=== PATIENT | female | born 1930 | race Caucasian/White ===

== ENCOUNTER 2017-02-18 18:24 | Inpatient (IN) | payer MEDICARE, OTHER ==
[2017-02-18] MEDS ORDERED: Sodium Chloride 0.9% 1,000 ML IV SCH (19:15)
[2017-02-18] MEDS ORDERED: Sodium Chloride 0.9% 10 ML Syringe FLUSH PRN (21:10)
[2017-02-18] MEDS ORDERED: Iopamidol 612 MG/ML 100 ML Bottle IV PRN (21:10)
[2017-02-18] MEDS ORDERED: Sodium Chloride 0.9% 80 ML IV ONE (21:10)
[2017-02-18] MEDS ORDERED: HYDROmorphone 0.5 MG/0.5 ML Syringe IVPUSH ONE (21:18)
--- NOTE | 2017-02-18 21:18 | EDM.PDOC ---
ED HPI GENERAL MEDICAL PROBLEM - General Chief Complaint: Gastrointestinal Problem Stated Complaint: ILLNESS Time Seen by Provider: 02/18/17 18:50 Source of Information: Reports: Patient History Limitations: Reports: No Limitations - History of Present Illness INITIAL COMMENTS - FREE TEXT/NARRATIVE: pt arrived with a history of mucousy and bloody diarrhea. She had a number of stools prior to arrval. She has sig pain in the lower abdoman. i Onset: Other (last nite. Pt has lost alot of weight recntly. ) Duration: Hour(s): Location: Reports: Abdomen Quality: Reports: Pressure Severity: Moderate Associated Symptoms: Reports: Loss of Appetite, Other ( weight loss) Abdominal Pain Score (Numeric/FACES): 10 - Related Data Allergies Allergy/AdvReac Type Severity Reaction Status Date / Time Penicillins Allergy Rash Verified 02/19/17 00:49 Home Meds: Home Meds Amiodarone [Cordarone] 200 mg PO DAILY 11/24/13 [History] Aspirin [[place] Aspirin] 81 mg PO DAILY 11/24/13 [History] Furosemide [Lasix] 20 mg PO DAILY 11/24/13 [History] Multivitamin [Multivitamins] 1 tab PO DAILY 11/24/13 [History] Acetaminophen/Diphenhydramine [Tylenol Pm Ex-Strength Caplet] 1 tab PO BEDTIME 08/15/14 [History] Albuterol [Ventolin HFA] 2 puff IH Q4H PRN 09/24/14 [History] Lisinopril 20 mg PO DAILY 10/09/14 [History] Warfarin [Coumadin] 2 mg PO DAILY #30 tablet 10/14/14 [Rx] Metoprolol Tartrate [Lopressor] 50 mg PO BID 01/11/15 [History] Acetaminophen [Pain Reliever] 1 tab PO Q6H PRN 02/18/17 [History] Calcium Carbonate/Vitamin D3 [Calcium 600 + Vit D 200] 1 tab PO DAILY 02/18/17 [ History] Tolterodine Tartrate [Tolterodine Tartrate ER] 1 cap PO DAILY 02/18/17 [History] hydrOXYzine HCl [hydrOXYzine] 50 mg PO Q6H PRN 02/18/17 [History] Past Medical History HEENT History: Reports: Impaired Vision Cardiovascular History: Reports: Afib, Hypertension Respiratory History: Reports: SOB 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 hurts mid right back Psychiatric History: Reports: Anxiety Hematologic History: Reports: Anticoagulation Therapy - Infectious Disease History Infectious Disease History: Reports: Chicken Pox - Past Surgical History GI Surgical History: Reports: Cholecystectomy, Colonoscopy Female Surgical History: Reports: Hysterectomy Musculoskeletal Surgical History: Reports: Shoulder Surgery, Other (See Below) Other Musculoskeletal Surgeries/Procedures:: fracture repair of arm Social & Family History - Tobacco Use Smoking Status *Q: Never Smoker Years of Tobacco use: 30 Used Tobacco, but Quit: Yes Month Tobacco Last Used: 1982 Second Hand Smoke Exposure: No - Caffeine Use Caffeine Use: Reports: Coffee, Soda - Alcohol Use Days Per Week of Alcohol Use: 7 Number of Drinks Per Day: 1 Total Drinks Per Week: 7 - Recreational Drug Use Recreational Drug Use: No ED ROS GENERAL - Review of Systems Review Of Systems: See Below Constitutional: Reports: No Symptoms HEENT: Reports: No Symptoms Respiratory: Reports: No Symptoms Cardiovascular: Reports: No Symptoms Endocrine: Reports: No Symptoms GI/Abdominal: Reports: Abdominal Pain, Other (pt has lower abdomanal pain) : Reports: No Symptoms Musculoskeletal: Reports: No Symptoms Skin: Reports: No Symptoms Neurological: Reports: No Symptoms Psychiatric: Reports: Anxiety ED EXAM, GI/ABD - Physical Exam Exam: See Below Text/Narrative:: pt arrived with pain in the lower abdoman. Sh has had a number of stools that are bloody and have alot of mmucous. She has not been on any recent antibiotic. Exam Limited By: No Limitations General Appearance: Alert, Anxious, Moderate Distress Ears: Normal TMs Nose: Normal Inspection Throat/Mouth: Normal Inspection Head: Atraumatic Neck: Normal Inspection Respiratory/Chest: No Respiratory Distress Cardiovascular: Regular Rate, Rhythm GI/Abdominal Exam: Distended, Tender, Other (pt is tender in the lower abdoman. ) (Female) Exam: Deferred Rectal (Female) Exam: Bloody Stool, Other (pt has a possible rectal mass present. ) Extremities: Normal Inspection Neurological: Alert, Oriented, Normal Cognition Psychiatric: Normal Affect Course - Vital Signs Last Recorded V/S: Last Vital Signs Temp 36.4 C 02/20/17 13:11 Pulse 31 L 02/20/17 13:15 Resp 14 02/20/17 13:15 BP 130/59 L 02/20/17 13:15 Pulse Ox 83 L 02/20/17 13:15 - Orders/Labs/Meds Labs: Laboratory Tests 02/18/17 02/18/17 02/18/17 Range/Units 19:32 19:32 19:32 WBC 13.5 H (4.5-11.0) K/uL RBC 4.32 (3.30-5.50) M/uL Hgb 12.8 (12.0-15.0) g/dL Hct 39.2 (36.0-48.0) % MCV 91 (80-98) fL MCH 30 (27-31) pg MCHC 33 (32-36) % Plt Count 342 (150-400) K/uL Neut % (Auto) 85 H (36-66) % Lymph % (Auto) 8 L (24-44) % [place] % (Auto) 7 H (2-6) % Eos % (Auto) 0 L (2-4) % Baso % (Auto) 0 (0-1) % PT 38.7 H (9.5-12.0) sec INR 3.44 H (0.80-1.20) Sodium 142 (140-148) mmol/L Potassium 3.9 (3.6-5.2) mmol/L Chloride 104 (100-108) mmol/L Carbon Dioxide 28 (21-32) mmol/L Anion Gap 9.8 (5.0-14.0) mmol/L BUN 22 H (7-18) mg/dL Creatinine 1.1 H (0.6-1.0) mg/dL Est Cr Clr Drug Dosing 34.17 mL/min Estimated GFR (MDRD) 47 L (>60) Glucose 119 H (74-106) mg/dL Calcium 9.1 (8.5-10.1) mg/dL Total Bilirubin 0.6 D (0.2-1.0) mg/dL AST 29 (15-37) U/L ALT 25 (12-78) U/L Alkaline Phosphatase 97 (46-116) U/L C-Reactive Protein (0.0-0.3) mg/dL Total Protein 7.3 (6.4-8.2) g/dL Albumin 3.6 (3.4-5.0) g/dL Globulin 3.7 H (2.3-3.5) g/dL Albumin/Globulin Ratio 1.0 L (1.2-2.2) TSH, Ultra Sensitive (0.358-3.740) uIU/mL 02/18/17 02/18/17 Range/Units 20:05 21:19 WBC (4.5-11.0) K/uL RBC (3.30-5.50) M/uL Hgb (12.0-15.0) g/dL Hct (36.0-48.0) % MCV (80-98) fL MCH (27-31) pg MCHC (32-36) % Plt Count (150-400) K/uL Neut % (Auto) (36-66) % Lymph % (Auto) (24-44) % [place] % (Auto) (2-6) % Eos % (Auto) (2-4) % Baso % (Auto) (0-1) % PT (9.5-12.0) sec INR (0.80-1.20) Sodium (140-148) mmol/L Potassium (3.6-5.2) mmol/L Chloride (100-108) mmol/L Carbon Dioxide (21-32) mmol/L Anion Gap (5.0-14.0) mmol/L BUN (7-18) mg/dL Creatinine (0.6-1.0) mg/dL Est Cr Clr Drug Dosing mL/min Estimated GFR (MDRD) (>60) Glucose (74-106) mg/dL Calcium (8.5-10.1) mg/dL Total Bilirubin (0.2-1.0) mg/dL AST (15-37) U/L ALT (12-78) U/L Alkaline Phosphatase (46-116) U/L C-Reactive Protein 0.55 H (0.0-0.3) mg/dL Total Protein (6.4-8.2) g/dL Albumin (3.4-5.0) g/dL Globulin (2.3-3.5) g/dL Albumin/Globulin Ratio (1.2-2.2) TSH, Ultra Sensitive 0.292 L (0.358-3.740) uIU/mL Meds: Medications Discontinued Medications Generic Name Dose Route Start Last Admin Trade Name Conradoq PRN Reason Stop Dose Admin Acetaminophen 650 mg 02/19/17 00:34 02/19/17 13:34 Tylenol PO 650 mg Q4H PRN Administration Pain (Mild 1-3)/fever Albuterol 2.5 mg 02/19/17 00:34 Proventil Neb Soln NEB Q4H PRN Shortness Of Breath/wheezing Albuterol/Ipratropium 3 ml 02/19/17 00:34 Duoneb 3.0-0.5 Mg/3 Ml NEB QID PRN Shortness Of Breath/wheezing Amiodarone HCl 200 mg 02/19/17 09:00 02/20/17 10:02 Cordarone PO 200 mg DAILY CONTRERAS Administration Amlodipine Besylate 5 mg 02/20/17 09:15 02/20/17 10:04 Norvasc PO 5 mg DAILY CONTRERAS Administration Atropine Sulfate 0.5 mg 02/20/17 12:30 02/20/17 12:39 Atropine 0.1 Mg/Ml IVPUSH 02/20/17 12:31 0.5 mg ONETIME ONE Administration Bisacodyl 10 mg 02/19/17 00:34 02/19/17 01:28 Dulcolax PO 02/19/17 00:35 10 mg ONETIME ONE Administration Bisacodyl 10 mg 02/19/17 18:00 02/19/17 17:36 Dulcolax PO 02/19/17 18:01 10 mg ONETIME ONE Administration Bisacodyl 10 mg 02/19/17 21:00 02/19/17 22:02 Dulcolax PO 02/19/17 21:01 10 mg ONETIME ONE Administration Diphenhydramine HCl 25 mg 02/19/17 00:34 Benadryl PO BEDTIME PRN Insomnia Epinephrine HCl 0.5 mg 02/20/17 13:10 02/20/17 13:10 Epinephrine 1:10,000 IV 02/20/17 13:11 0.5 mg ONETIME ONE Administration Epinephrine HCl 1 mg 02/20/17 13:00 02/20/17 13:00 Epinephrine 1:10,000 IV 02/20/17 13:01 1 mg ONETIME ONE Administration Fentanyl Confirm 02/20/17 09:57 Sublimaze Administered 02/20/17 09:58 Dose 100 mcg .ROUTE .STK-MED ONE Furosemide 20 mg 02/19/17 09:00 02/19/17 09:43 Lasix PO 20 mg DAILY CONTRERAS Administration Glycopyrrolate 0.2 mg 02/20/17 12:15 02/20/17 12:18 Glycopyrrolate IVPUSH 02/20/17 12:16 0.2 mg ONETIME ONE Administration Hydromorphone HCl 0.5 mg 02/18/17 21:18 02/18/17 22:02 Dilaudid IVPUSH 02/18/17 21:19 0.5 mg ONETIME ONE Administration Hydroxyzine HCl 50 mg 02/19/17 00:34 Atarax PO Q6H PRN Anxiety Sodium Chloride 1,000 mls @ 500 mls/hr 02/18/17 19:15 02/18/17 19:41 Normal Saline IV 500 mls/hr ASDIRECTED CONTRERAS Administration Sodium Chloride 80 mls @ 3 mls/sec 02/18/17 21:10 02/18/17 21:32 Normal Saline IV 02/18/17 21:11 3 mls/sec ONETIME ONE Administration Pantoprazole Sodium 80 mg/ 100 mls @ 200 mls/hr 02/19/17 00:34 02/19/17 02:05 Sodium Chloride IV 02/19/17 01:03 200 mls/hr .BOLUS ONE Administration Phytonadione 10 mg/ Sodium 51 mls @ 100 mls/hr 02/19/17 00:34 02/19/17 01:30 Chloride IV 02/19/17 01:04 100 mls/hr NOW ONE Administration Sodium Chloride 1,000 mls @ 125 mls/hr 02/19/17 00:34 02/19/17 09:05 Normal Saline IV 125 mls/hr ASDIRECTED CONTRERAS Administration Sodium Chloride 1,000 mls @ 75 mls/hr 02/19/17 13:15 02/20/17 05:00 Normal Saline IV 75 mls/hr ASDIRECTED CONTRERAS Administration Phytonadione 5 mg/ Sodium 50.5 mls @ 100 mls/hr 02/19/17 13:30 02/19/17 14:13 Chloride IV 02/19/17 14:00 100 mls/hr NOW ONE Administration Iopamidol 100 ml 02/18/17 21:10 02/18/17 21:32 Isovue-300 (61%) IV 100 ml . DIRECTED PRN Administration RADIOLOGY EXAM Lidocaine Confirm 02/20/17 09:58 02/20/17 11:25 Lta 360 Kit Top Soln Administered 02/20/17 09:59 4 ml Dose Administration 4 ml .ROUTE .STK-MED ONE Lidocaine HCl Confirm 02/20/17 11:03 02/20/17 11:25 Xylocaine 2% Viscous Administered 02/20/17 11:04 15 ml Dose Administration 15 ml .ROUTE .STK-MED ONE Lidocaine HCl Confirm 02/20/17 11:04 Xylocaine 4% Top Soln Administered 02/20/17 11:05 Dose 50 ml .ROUTE .STK-MED ONE Lisinopril 20 mg 02/19/17 09:00 02/20/17 10:03 Prinivil PO 20 mg DAILY CONTRERAS Administration Lorazepam 1 mg 02/19/17 00:34 02/20/17 12:55 Ativan IV 1 mg Q6H PRN Administration Nausea/Vomiting Lorazepam 1 mg 02/20/17 13:09 02/20/17 13:09 Ativan IV 02/20/17 13:10 1 mg ONETIME ONE Administration Metoprolol Tartrate 100 mg 02/19/17 09:00 02/20/17 10:02 Lopressor PO 100 mg BID CONTRERAS Administration Midazolam HCl Confirm 02/20/17 09:57 Versed 1 Mg/Ml Administered 02/20/17 09:58 Dose 2 mg .ROUTE .STK-MED ONE Midazolam HCl Confirm 02/20/17 12:25 Versed 1 Mg/Ml Administered 02/20/17 12:26 Dose 2 mg .ROUTE .STK-MED ONE Morphine Sulfate 2 mg 02/19/17 00:34 Morphine IVPUSH Q2H PRN Pain (severe 7-10) Ondansetron HCl 4 mg 02/18/17 22:45 02/18/17 22:49 Zofran IVPUSH 02/18/17 22:46 4 mg ONETIME ONE Administration Ondansetron HCl 4 mg 02/19/17 00:34 Zofran Odt PO Q6H PRN Nausea able to take PO Ondansetron HCl 4 mg 02/19/17 00:34 Zofran IV Q4H PRN Nausea/Vomiting Oxycodone HCl 5 mg 02/19/17 00:34 02/20/17 05:07 Oxycodone PO 5 mg Q4H PRN Administration Pain (moderate 4-6) Pantoprazole Sodium 40 mg 02/19/17 00:34 02/19/17 02:09 Protonix Iv IV Not Given Q12H CONTRERAS Pantoprazole Sodium 40 mg 02/19/17 14:00 02/20/17 01:51 Protonix Iv IV 40 mg Q12H CONTRERAS Administration Polyethylene Glycol 238 gm 02/19/17 00:34 02/19/17 01:30 Miralax PO 02/19/17 00:35 238 gm ONETIME ONE Administration Polyethylene Glycol 238 gm 02/19/17 18:00 02/19/17 17:37 Miralax PO 02/19/17 18:01 238 gm ONETIME ONE Administration Propofol Confirm 02/20/17 09:57 Diprivan 20 Ml Administered 02/20/17 09:58 Dose 200 mg .ROUTE .STK-MED ONE Sodium Biphosphate/Sodium Phosphate 133 ml 02/19/17 08:45 02/19/17 08:51 Fleet Enema RECTAL 02/19/17 08:46 133 ml ONETIME ONE Administration Sodium Biphosphate/Sodium Phosphate 133 ml 02/19/17 09:19 02/19/17 09:44 Fleet Enema RECTAL 02/19/17 09:20 133 ml ONETIME ONE Administration Sodium Chloride 10 ml 02/18/17 21:10 02/18/17 21:32 Saline Flush FLUSH 10 ml ONETIME PRN Administration PER RADIOLOGY PROTOCOL Tolterodine Tartrate 1 mg 02/19/17 09:00 02/19/17 21:55 Detrol PO 1 mg BID CONTRERAS Administration Zolpidem Tartrate 5 mg 02/19/17 00:34 Ambien PO BEDTIME PRN Sleep Departure - Departure Time of Disposition: 13:15 Disposition: Admitted As Inpatient 66 Condition: Fair Clinical Impression: Mass of right chest wall, Rectal mass, Bloody diarrhea - Discharge Information
[2017-02-18] MEDS ORDERED: Ondansetron 4 MG/2 ML SDV IVPUSH ONE (22:45)
[2017-02-19] MEDS ORDERED: Bisacodyl 5 MG Tab PO ONE ×3 (00:34→21:00)
[2017-02-19] MEDS ORDERED: Ondansetron 4 MG/2 ML SDV IV PRN (00:34)
[2017-02-19] MEDS ORDERED: Pantoprazole 40 MG Vial IV SCH (00:34)
[2017-02-19] MEDS ORDERED: Albuterol 0.083% 2.5 MG/3 ML Neb Soln NEB PRN (00:34)
[2017-02-19] MEDS ORDERED: Ondansetron 4 MG Tab.DIS PO PRN (00:34)
[2017-02-19] MEDS ORDERED: diphenhydrAMINE 25 MG Cap PO PRN (00:34)
[2017-02-19] MEDS ORDERED: hydrOXYzine HCl 25 MG Tab PO PRN (00:34)
[2017-02-19] MEDS ORDERED: Phytonadione 10 MG in Sodium Chloride 0.9% 50 ML IV ONE (00:34)
[2017-02-19] MEDS ORDERED: Polyethylene Glycol 3350 Powder 238 GM Bot PO ONE ×2 (00:34→18:00)
[2017-02-19] MEDS ORDERED: Zolpidem 5 MG Tab PO PRN (00:34)
[2017-02-19] MEDS ORDERED: Albuterol/Ipratropium 3.0-0.5 MG/3 ML Neb Soln NEB PRN (00:34)
[2017-02-19] MEDS ORDERED: LORazepam 2 MG/ML SDV IV PRN (00:34)
[2017-02-19] MEDS ORDERED: Morphine 2 MG/ML Syringe IVPUSH PRN (00:34)
[2017-02-19] MEDS ORDERED: Pantoprazole 80 MG in Sodium Chloride 0.9% 100 ML IV ONE (00:34)
--- NOTE | 2017-02-19 00:34 | PCM.HP ---
H&P History of Present Illness - General Date of Service: 02/18/17 Admit Problem/Dx: Admission Diagnosis/Problem Admission Diagnosis/Problem Gastrointestinal hemorrhage Source of Information: Patient, Other (Friend Neighbor Kate Carreon) History Limitations: Reports: No Limitations - History of Present Illness Initial Comments - Free Text/Narative: bloody diarrhea and emesis; this is a 86 year old female presented ER with Friend/neighbor Kate Carreon. Ms. Major reports for the past two days, vomiting blood two times on Sunday and Sunday. Reports multi bloody stools for two days, this has caused acute abdominal pain. She has concerns of weakness and dizziness with standing and uncontrolled abdominal pain. Reports wt loss, decreased appetite, 2 day history of bloody emesis and stools. While in Emergency Room, labs; WBC 13.5, HGB 12.8, HCT 39.2, PLATLETS 324, NA 142, K+3.9, CL 104, ANION GAP 9.8, BUN 22, CR 1.1, GLU 119, C02 28. INR 3.44, PT 38.7 CRP 0.55, TOT PRO 7.3, GLOBULIN 3.6, TSH 0.292, FECAL OCCULT STOOL POSITIVE. CT chest shows a right 5.3 cm spiculated lung mass. bilateral lung nodules. she was given IV fluids, anti-emetic, Dilaudid; she was comfortable. Reviewed the CT reports and labs results with Ms. Major and her friend Kate. would like these findings further investigated. She is unsure of what kind of treatment, she would like to have. but would like to find out the extent of disease and prognosis for treatment. Consulted with Dr. Baxter, he will do a EGD, Colonscopy and Bronchoscopy tomorrow. Will admit to Hospitalist Service. Onset of Symptoms: Reports: Gradual Duration of Symptoms: Reports: Day(s): (bloody stool and emesis x 2 days) Location: Reports: Generalized Quality: Reports: Other (cramping abdominal pain) Severity: Severe Improves with: Reports: None Worsens with: Reports: None Associated Symptoms: Reports: Fever/Chills, Loss of Appetite, Malaise, Nausea/ Vomiting, Weakness Abdominal Pain Score (Numeric/FACES): 6 - Related Data Allergies/Adverse Reactions: Allergies Allergy/AdvReac Type Severity Reaction Status Date / Time Penicillins Allergy Rash Verified 02/19/17 00:49 Home Medications: Home Meds Amiodarone [Cordarone] 200 mg PO DAILY 11/24/13 [History] Aspirin [[place] Aspirin] 81 mg PO DAILY 11/24/13 [History] Furosemide [Lasix] 20 mg PO DAILY 11/24/13 [History] Multivitamin [Multivitamins] 1 tab PO DAILY 11/24/13 [History] Acetaminophen/Diphenhydramine [Tylenol Pm Ex-Strength Caplet] 2 tab PO BEDTIME 08/15/14 [History] Albuterol [Ventolin HFA] 1 - 2 puff IH Q4H PRN 09/24/14 [History] Lisinopril 20 mg PO DAILY 10/09/14 [History] Warfarin [Coumadin] 2 mg PO DAILY #30 tablet 10/14/14 [Rx] Metoprolol Tartrate [Lopressor] 100 mg PO BID 01/11/15 [History] Acetaminophen [Pain Reliever] 1 tab PO Q6H PRN 02/18/17 [History] Calcium Carbonate/Vitamin D3 [Calcium 600 + Vit D 200] 1 tab PO DAILY 02/18/17 [ History] Tolterodine Tartrate [Tolterodine Tartrate ER] 1 cap PO DAILY 02/18/17 [History] hydrOXYzine HCl [hydrOXYzine] 50 mg PO Q6H PRN 02/18/17 [History] Past Medical History HEENT History: Reports: Impaired Vision Cardiovascular History: Reports: Afib, Hypertension Respiratory History: Reports: 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 hurts mid right back Psychiatric History: Reports: Anxiety Hematologic History: Reports: Anticoagulation Therapy - Infectious Disease History Infectious Disease History: Reports: Chicken Pox - Past Surgical History GI Surgical History: Reports: Cholecystectomy, Colonoscopy Female Surgical History: Reports: Hysterectomy Musculoskeletal Surgical History: Reports: Shoulder Surgery, Other (See Below) Other Musculoskeletal Surgeries/Procedures:: fracture repair of arm Social & Family History - Tobacco Use Smoking Status *Q: Never Smoker Years of Tobacco use: 30 Used Tobacco, but Quit: Yes Month Tobacco Last Used: 1982 Second Hand Smoke Exposure: No - Caffeine Use Caffeine Use: Reports: Coffee, Soda - Alcohol Use Days Per Week of Alcohol Use: 7 Number of Drinks Per Day: 1 Total Drinks Per Week: 7 - Recreational Drug Use Recreational Drug Use: No - Living Situation & Occupation Living situation: Reports: , Alone Occupation: Retired (, had one son, who , lives in on the [place], has a Sister in the [facility] with six children. Her Niece Rachel is her Health Director.) H&P Review of Systems - Review of Systems: Review Of Systems: See Below General: Reports: Chills, Malaise, Fatigue, Decreased Appetite, Weight Loss HEENT: Reports: No Symptoms Pulmonary: Reports: Shortness of Breath (with activity), Other (smoked 2 packs of cigarettes for 30+ years, quit in 1984.) Cardiovascular: Reports: Lightheadedness, Other (coumadin therapy for A-fib.) Gastrointestinal: Reports: Abdominal Pain, Black Stool, Bloody Stool, Diarrhea, Decreased Appetite, Hematemesis, Hematochezia, Nausea, Vomiting Genitourinary: Reports: No Symptoms Musculoskeletal: Reports: No Symptoms Skin: Reports: Bruising Psychiatric: Reports: No Symptoms Hematologic/Lymphatic: Reports: Easy Bleeding, Easy Bruising Immunologic: Reports: No Symptoms Exam - Exam Exam: See Below - Vital Signs Vital Signs: Last Vital Signs Temp 36.8 C 02/19/17 00:17 Pulse 69 02/19/17 00:17 Resp 17 02/19/17 00:17 BP 177/61 H 02/19/17 00:17 Pulse Ox 88 L 02/19/17 00:17 Weight: 58.967 kg - Exam Quality Assessment: Supplemental Oxygen General: Alert, Oriented, Cooperative, Mild Distress HEENT: PERRLA, Conjunctiva Clear, EACs Clear, EOMI, Hearing Intact, Nares Patent , Normal Nasal Septum, Other (tongue dry) Neck: Supple, Trachea Midline Lungs: Decreased Breath Sounds Cardiovascular: Regular Rate, Regular Rhythm GI/Abdominal Exam: Soft, No Distention, Tender (generalized abdominal pain) (Female) Exam: Deferred Rectal (Female) Exam: Heme + Stool Back Exam: Normal Inspection, Full Range of Motion Extremities: Normal Inspection, Normal Range of Motion, No Pedal Edema, Other ( toe nails long and fungal. needs clipped) Skin: Warm, Dry, Intact, Other (few scattered bruises on hands and arms.) Neurological: Reflexes Equal Bilateral, Strength Equal Bilateral, Normal Speech , Normal Tone, Sensation Intact Neuro Extensive - Mental Status: Alert, Oriented x3, Normal Mood/Affect, Normal Cognition Neuro Extensive - Motor, Sensory, Reflexes: CN II-XII Intact Psychiatric: Alert, Normal Affect, Normal Mood - Patient Data Result Diagrams: 02/18/17 19:32 02/18/17 19:32 *Q Meaningful Use (ADM) - VTE *Q VTE Criteria *Q: - Stroke *Q Stroke Criteria *Q: - AMI *Q AMI Criteria *Q: - Problem List (1) Gastrointestinal hemorrhage SNOMED Code(s): 12252897 ICD Code: K92.2 - GASTROINTESTINAL HEMORRHAGE, UNSPECIFIED Status: Acute Priority: High Current Visit: Yes Qualifiers: GI bleed type/associated pathology: gastrointestinal hemorrhage with hematemesis Qualified Code(s): K92.0 - Hematemesis (2) Lung mass SNOMED Code(s): 835991667 ICD Code: R91.8 - OTHER NONSPECIFIC ABNORMAL FINDING OF LUNG FIELD Status: Acute Priority: High Current Visit: Yes (3) Atrial fibrillation SNOMED Code(s): 46142439 ICD Code: I48.91 - UNSPECIFIED ATRIAL FIBRILLATION Status: Chronic Priority: Medium Current Visit: No Qualifiers: Atrial fibrillation type: chronic Qualified Code(s): I48.2 - Chronic atrial fibrillation Problem List Initiated/Reviewed/Updated: Yes Orders Last 24hrs: Active Orders 24 hr Category Date Time Status Resuscitation Status Routine Resus Stat 02/18/17 23:47 Ordered Medication Orders Sodium Chloride (Normal Saline) 1,000 mls @ 500 mls/hr IV ASDIRECTED [facility] Last Admin: 02/18/17 19:41 Dose: 500 mls/hr Sodium Chloride (Saline Flush) 10 ml FLUSH ONETIME PRN PRN Reason: PER RADIOLOGY PROTOCOL Last Admin: 02/18/17 21:32 Dose: 10 ml Assessment/Plan Comment:: ASSESSMENT / PLAN bloody diarrhea and emesis; this is a 86 year old female presented ER with Friend/neighbor Kate Carreon. Ms. Major reports for the past two days, vomiting blood two times on Sunday and Sunday. Reports multi bloody stools for two days, this has caused acute abdominal pain. She has concerns of weakness and dizziness with standing and uncontrolled abdominal pain. Reports wt loss, decreased appetite, 2 day history of bloody emesis and stools. While in Emergency Room, labs; WBC 13.5, HGB 12.8, HCT 39.2, PLATLETS 324, NA 142, K+3.9, CL 104, ANION GAP 9.8, BUN 22, CR 1.1, GLU 119, C02 28. INR 3.44, PT 38.7 CRP 0.55, TOT PRO 7.3, GLOBULIN 3.6, TSH 0.292, FECAL OCCULT STOOL POSITIVE. CT chest shows a right 5.3 cm spiculated lung mass. bilateral lung nodules. she was given IV fluids, anti-emetic, Dilaudid; she was comfortable. Reviewed the CT reports and labs results with Ms. Major and her friend Kate. would like these findings further investigated. She is unsure of what kind of treatment, she would like to have. but would like to find out the extent of disease and prognosis for treatment. Consulted with Dr. Baxter, he will do a EGD, Colonscopy and Bronchoscopy tomorrow. Will admit to Hospitalist Service, consult to Surgery Gastrointestinal bleed -Admit to [address] [place] [address] for further monitoring -IV Fluids for rehydration NS at 125 mL per hour -type and cross for 2 units of PRBC -IV Protonix 80mg iv now, tomorrow IV Protonix 40mg bid -order medication for pain control and anti-emetics -consult to Surgery, will have EGD, Colonscopy, Bronchoscopy on 02-19-2017 -Colonscopy prep per protocal -Advise to notify nurses of any chest pain or other symptoms -And a.m. labs: CBC, BMP A Fib with anticoagulation therapy -hold Coumadin for surgery procedure -IV Vitamin K 10 mg now New Lung Mass -CT chest right 5.3 cm lung mass with bilateral nodules. -bronchoscopy to evaluate mass Maintenance issues -Orders home meds: all order except Coumadin -Nutrition: NPO -Bhatia catheter not indicated at this time -DVT: SCD -PPI; IV Protonix 40mg bid -consult OT for discharge planning -consult to Spiritual , new diagnosis CODE STATUS: DNR/DNI Admission status: Admit to [address] [place] [address] Admission justification. This patient will be admitted for inpatient services and is medically appropriate meeting medical necessity for inpatient admission as outlined in my documentation. I reasonably expect the patient will require inpatient services that span. Time over 2 midnights. I reasonably expect this patient to be discharged or transferred within 96 hours after admission to the critical access hospital. Disposition; home Primary care provider: Dr. Turcios Hospitalist: Dr. Concepcion Surgery Consult: Dr. oFy Call friend if has any changes; Kate Solorzano :[phone] cell [phone]
[2017-02-19] MEDS: Sodium Chloride 0.9% 1,000 ML IV SCH ×3 (01:16→17:34)
[2017-02-19] MEDS: Acetaminophen 325 MG Tab PO PRN ×2 (01:29→13:34)
[2017-02-19] MEDS: oxyCODONE 5 MG Tab PO PRN ×2 (01:29→13:33)
[2017-02-19] MEDS ORDERED: Sodium Phosphate,Monobasic/Sodium Phosphate,Dibasic Enema 133 ML Bottle RECTAL ONE ×2 (08:45→09:19)
[2017-02-19] MEDS ORDERED: Trospium 20 MG Tab PO SCH (09:00)
[2017-02-19] MEDS ORDERED: Furosemide 20 MG Tab PO SCH (09:00)
[2017-02-19] MEDS: Metoprolol Tartrate 50 MG Tab PO SCH ×2 (09:43→22:30)
[2017-02-19] MEDS: Tolterodine 2 MG Tab PO SCH ×2 (09:43→21:55)
[2017-02-19] MEDS: Amiodarone 200 MG Tab PO SCH (09:43)
[2017-02-19] MEDS: Lisinopril 20 MG Tab PO SCH (09:44)
--- NOTE | 2017-02-19 10:22 | CR ---
Abdomen Series w Chest 1V HISTORY: Pain COMPARISON: Chest x-ray 12/14/2015. Abdominal films 2015. FINDINGS: Stable mild cardiomegaly. Hyperinflation. No dense focal infiltrates. No effusions. Stable prominence of the right hilar region compatible with pulmonary artery. Prominent curvature of the lumbar spine with degenerative change. No evidence for obstruction or free air. Moderate stool throughout the entire colon likely representing constipation.
--- NOTE | 2017-02-19 13:15 | PCM.PN ---
- General Info Date of Service: 02/19/17 Subjective Update: Ms. Major is an 86-year-old woman who was admitted through the emergency department last night with lower abdominal pain, hematochezia, and hematemesis over a period of 2 days. Since admission she has had no further hematemesis or hematochezia. Hemoglobin has dropped with hydration but since has remained stable with no evidence of active bleeding. CT scan obtained on admission did show incidental finding of a lung mass. Plan had been to proceed with bronchoscopy, EGD, and colonoscopy this morning. Unfortunately she did not respond well to the colonoscopy prep and will need further prep before proceeding with the procedures. Functional Status: Reports: Pain Controlled, Urinating - Review of Systems General: Reports: Weakness. Denies: Fever, Chills Pulmonary: Reports: No Symptoms Cardiovascular: Reports: No Symptoms Gastrointestinal: Reports: Abdominal Pain. Denies: Diarrhea, Difficulty Swallowing, Nausea, Vomiting - Patient Data Vitals - Most Recent: Last Vital Signs Temp 97.7 F 02/19/17 11:38 Pulse 108 H 02/19/17 11:38 Resp 17 02/19/17 11:38 BP 138/46 L 02/19/17 11:38 Pulse Ox 138 H 02/19/17 11:38 Weight - Most Recent: 130 lb I&O - Last 24 Hours: Intake & Output 02/18/17 02/19/17 02/19/17 22:59 06:59 14:59 Intake Total 653 Output Total 200 Balance 653 -200 Lab Results Last 24 Hours: Laboratory Results - last 24 hr 02/19/17 02/19/17 02/19/17 Range/Units 05:11 05:11 06:00 WBC 14.8 H (4.5-11.0) K/uL RBC 3.74 (3.30-5.50) M/uL Hgb 11.2 L (12.0-15.0) g/dL Hct 34.3 L (36.0-48.0) % MCV 92 (80-98) fL MCH 30 (27-31) pg MCHC 33 (32-36) % Plt Count 305 (150-400) K/uL Neut % (Auto) 79 H (36-66) % Lymph % (Auto) 9 L (24-44) % Bucks % (Auto) 12 H (2-6) % Eos % (Auto) 0 L (2-4) % Baso % (Auto) 0 (0-1) % PT (9.5-12.0) sec INR (0.80-1.20) Sodium 141 (140-148) mmol/L Potassium 4.1 (3.6-5.2) mmol/L Chloride 106 (100-108) mmol/L Carbon Dioxide 26 (21-32) mmol/L Anion Gap 9.0 (5.0-14.0) mmol/L BUN 15 (7-18) mg/dL Creatinine 1.0 (0.6-1.0) mg/dL Est Cr Clr Drug Dosing 37.59 mL/min Estimated GFR (MDRD) 53 L (>60) Glucose 146 H (74-106) mg/dL Calcium 8.0 L (8.5-10.1) mg/dL Urine Color Urine Appearance Urine pH (4.5-8.0) Ur Specific [place] (1.008-1.030) Urine Protein (NEGATIVE) mg/dL Urine Glucose (UA) (NEGATIVE) mg/dL Urine Ketones (NEGATIVE) mg/dL Urine Occult Blood (NEGATIVE) Urine Nitrite (NEGATIVE) Urine Bilirubin (NEGATIVE) Urine Urobilinogen (NORMAL) mg/dL Ur Leukocyte Esterase (NEGATIVE) Blood Type AB POSITIVE Gel Antibody Screen Negative Crossmatch See Detail 02/19/17 02/19/17 02/19/17 Range/Units 08:34 09:54 10:55 WBC (4.5-11.0) K/uL RBC (3.30-5.50) M/uL Hgb 11.0 L (12.0-15.0) g/dL Hct (36.0-48.0) % MCV (80-98) fL MCH (27-31) pg MCHC (32-36) % Plt Count (150-400) K/uL Neut % (Auto) (36-66) % Lymph % (Auto) (24-44) % Bucks % (Auto) (2-6) % Eos % (Auto) (2-4) % Baso % (Auto) (0-1) % PT 19.5 H (9.5-12.0) sec INR 1.78 H (0.80-1.20) Sodium (140-148) mmol/L Potassium (3.6-5.2) mmol/L Chloride (100-108) mmol/L Carbon Dioxide (21-32) mmol/L Anion Gap (5.0-14.0) mmol/L BUN (7-18) mg/dL Creatinine (0.6-1.0) mg/dL Est Cr Clr Drug Dosing mL/min Estimated GFR (MDRD) (>60) Glucose (74-106) mg/dL Calcium (8.5-10.1) mg/dL Urine Color Yellow Urine Appearance Cloudy Urine pH 6.5 (4.5-8.0) Ur Specific [place] 1.005 L (1.008-1.030) Urine Protein Negative (NEGATIVE) mg/dL Urine Glucose (UA) Normal (NEGATIVE) mg/dL Urine Ketones Negative (NEGATIVE) mg/dL Urine Occult Blood Large (NEGATIVE) Urine Nitrite Negative (NEGATIVE) Urine Bilirubin Negative (NEGATIVE) Urine Urobilinogen Normal (NORMAL) mg/dL Ur Leukocyte Esterase Moderate (NEGATIVE) Blood Type Gel Antibody Screen Crossmatch Med Orders - Current: Current Medications Acetaminophen (Tylenol) 650 mg PO Q4H PRN PRN Reason: Pain (Mild 1-3)/fever Last Admin: 02/19/17 01:29 Dose: 650 mg Albuterol (Proventil Neb Soln) 2.5 mg NEB Q4H PRN PRN Reason: Shortness Of Breath/wheezing Albuterol/Ipratropium (Duoneb 3.0-0.5 Mg/3 Ml) 3 ml NEB QID PRN PRN Reason: Shortness Of Breath/wheezing Amiodarone HCl (Cordarone) 200 mg PO DAILY PENDING SALE TO [facility] Last Admin: 02/19/17 09:43 Dose: 200 mg Diphenhydramine HCl (Benadryl) 25 mg PO BEDTIME PRN PRN Reason: Insomnia Furosemide (Lasix) 20 mg PO DAILY PENDING SALE TO [facility] Last Admin: 02/19/17 09:43 Dose: 20 mg Hydroxyzine HCl (Atarax) 50 mg PO Q6H PRN PRN Reason: Anxiety Sodium Chloride (Normal Saline) 1,000 mls @ 75 mls/hr IV ASDIRECTED PENDING SALE TO [facility] Phytonadione 5 mg/ Sodium (Chloride) 50.5 mls @ 100 mls/hr IV NOW ONE Stop: 02/19/17 14:00 Lisinopril (Prinivil) 20 mg PO DAILY PENDING SALE TO [facility] Last Admin: 02/19/17 09:44 Dose: 20 mg Lorazepam (Ativan) 1 mg IV Q6H PRN PRN Reason: Nausea/Vomiting Metoprolol Tartrate (Lopressor) 100 mg PO BID PENDING SALE TO [facility] Last Admin: 02/19/17 09:43 Dose: 100 mg Morphine Sulfate (Morphine) 2 mg IVPUSH Q2H PRN PRN Reason: Pain (severe 7-10) Ondansetron HCl (Zofran Odt) 4 mg PO Q6H PRN PRN Reason: Nausea able to take PO Ondansetron HCl (Zofran) 4 mg IV Q4H PRN PRN Reason: Nausea/Vomiting Oxycodone HCl (Oxycodone) 5 mg PO Q4H PRN PRN Reason: Pain (moderate 4-6) Last Admin: 02/19/17 01:29 Dose: 5 mg Pantoprazole Sodium (Protonix Iv) 40 mg IV Q12H PENDING SALE TO [facility] Tolterodine Tartrate (Detrol) 1 mg PO BID PENDING SALE TO [facility] Last Admin: 02/19/17 09:43 Dose: 1 mg Zolpidem Tartrate (Ambien) 5 mg PO BEDTIME PRN PRN Reason: Sleep Discontinued Medications Bisacodyl (Dulcolax) 10 mg PO ONETIME ONE Stop: 02/19/17 00:35 Last Admin: 02/19/17 01:28 Dose: 10 mg Hydromorphone HCl (Dilaudid) 0.5 mg IVPUSH ONETIME ONE Stop: 02/18/17 21:19 Last Admin: 02/18/17 22:02 Dose: 0.5 mg Sodium Chloride (Normal Saline) 1,000 mls @ 500 mls/hr IV ASDIRECTED PENDING SALE TO [facility] Last Admin: 02/18/17 19:41 Dose: 500 mls/hr Sodium Chloride (Normal Saline) 80 mls @ 3 mls/sec IV ONETIME ONE Stop: 02/18/17 21:11 Last Admin: 02/18/17 21:32 Dose: 3 mls/sec Pantoprazole Sodium 80 mg/ (Sodium Chloride) 100 mls @ 200 mls/hr IV .BOLUS ONE Stop: 02/19/17 01:03 Last Admin: 02/19/17 02:05 Dose: 200 mls/hr Phytonadione 10 mg/ Sodium (Chloride) 51 mls @ 100 mls/hr IV NOW ONE Stop: 02/19/17 01:04 Last Admin: 02/19/17 01:30 Dose: 100 mls/hr Sodium Chloride (Normal Saline) 1,000 mls @ 125 mls/hr IV ASDIRECTED PENDING SALE TO [facility] Last Admin: 02/19/17 09:05 Dose: 125 mls/hr Iopamidol (Isovue-300 (61%)) 100 ml IV . DIRECTED PRN PRN Reason: RADIOLOGY EXAM Last Admin: 02/18/17 21:32 Dose: 100 ml Ondansetron HCl (Zofran) 4 mg IVPUSH ONETIME ONE Stop: 02/18/17 22:46 Last Admin: 02/18/17 22:49 Dose: 4 mg Pantoprazole Sodium (Protonix Iv) 40 mg IV Q12H PENDING SALE TO [facility] Last Admin: 02/19/17 02:09 Dose: Not Given Polyethylene Glycol (Miralax) 238 gm PO ONETIME ONE Stop: 02/19/17 00:35 Last Admin: 02/19/17 01:30 Dose: 238 gm Sodium Biphosphate/Sodium Phosphate (Fleet Enema) 133 ml RECTAL ONETIME ONE Stop: 02/19/17 08:46 Last Admin: 02/19/17 08:51 Dose: 133 ml Sodium Biphosphate/Sodium Phosphate (Fleet Enema) 133 ml RECTAL ONETIME ONE Stop: 02/19/17 09:20 Last Admin: 02/19/17 09:44 Dose: 133 ml Sodium Chloride (Saline Flush) 10 ml FLUSH ONETIME PRN PRN Reason: PER RADIOLOGY PROTOCOL Last Admin: 02/18/17 21:32 Dose: 10 ml - Exam Quality Assessment: Supplemental Oxygen, DVT Prophylaxis General: Alert, Oriented, Cooperative, Mild Distress Lungs: Clear to Auscultation, Normal Respiratory Effort Cardiovascular: Regular Rate, No Murmurs, Irregular Rhythm GI/Abdominal Exam: Soft, No Organomegaly, Tender. No: Distended, Guarding, Rigid, Rebound Extremities: Non-Tender, No Pedal Edema Skin: Warm, Dry, Intact - Problem List Review Problem List Initiated/Reviewed/Updated: Yes - My Orders Last 24 Hours: My Active Orders 02/19/17 13:15 Sodium Chloride 0.9% [Normal Saline] 1,000 ml IV ASDIRECTED 02/19/17 13:30 Phytonadione [AquaMephyton] 5 mg Sodium Chloride 0.9% [Normal Saline] 50 ml IV NOW 02/19/17 17:00 HGB [HEMOGLOBIN] [HEME] Stat 02/19/17 23:00 HGB [HEMOGLOBIN] [HEME] Stat 02/20/17 05:00 BASIC METABOLIC PANEL,BMP [CHEM] Timed CBC WITH AUTO DIFF [HEME] Timed INR,PT,PROTHROMBIN TIME [COAG] Timed - Plan Plan:: ASSESSMENT / PLAN Gastrointestinal bleed-stable since admission with no further evidence of active bleeding, unable to proceed with procedures this morning she still has significant volume of stool within the colon. -Admit to [address] [place] [address] for further monitoring -IV Fluids for rehydration NS at 75 mL per hour -type and cross for 2 units of PRBC -IV Protonix 80mg iv now, tomorrow IV Protonix 40mg bid -order medication for pain control and anti-emetics -consult to Surgery, will have EGD, Colonscopy, Bronchoscopy on 02-20-2017 -Serial hemoglobin levels A Fib with anticoagulation therapy-INR remains above desired range -hold Coumadin for surgery procedure -IV Vitamin K 5 mg now New Lung Mass -CT chest right 5.3 cm lung mass with bilateral nodules. -bronchoscopy to evaluate mass Maintenance issues -Orders home meds: all order except Coumadin -Nutrition: Clear liquids, nothing by mouth after midnight -Bhatia catheter not indicated at this time -DVT: SCD -PPI; IV Protonix 40mg bid -consult OT for discharge planning -consult to Spiritual , new diagnosis CODE STATUS: DNR/DNI Admission status: Admit to [address] [place] [address] Admission justification. This patient will be admitted for inpatient services and is medically appropriate meeting medical necessity for inpatient admission as outlined in my documentation. I reasonably expect the patient will require inpatient services that span. Time over 2 midnights. I reasonably expect this patient to be discharged or transferred within 96 hours after admission to the critical access hospital. Disposition; home Primary care provider: Dr. Turcios Hospitalist: Dr. Nguyễn Surgery Consult: Dr. Foy
[2017-02-19] MEDS: Pantoprazole 40 MG Vial IV SCH (13:24)
[2017-02-19] MEDS ORDERED: Phytonadione 5 MG in Sodium Chloride 0.9% 50 ML IV ONE (13:30)
[2017-02-20] MEDS: Pantoprazole 40 MG Vial IV SCH (01:51)
[2017-02-20] MEDS: Sodium Chloride 0.9% 1,000 ML IV SCH (05:00)
[2017-02-20] MEDS: oxyCODONE 5 MG Tab PO PRN (05:07)
[2017-02-20] MEDS ORDERED: amLODIPine 5 MG Tab PO SCH (09:15)
--- NOTE | 2017-02-20 09:35 | PN ---
DATE OF SERVICE: 02/20/2017 SUBJECTIVE: Izabel has been seen by Dr. Hi Foy, surgeon, for lower abdominal pain, hematochezia, and hematemesis for [address] scan revealed a 5.3 cm right lower lobe pulmonary mass. She is n.p.o. for bronchoscopy, upper and lower endoscopy. REVIEW OF SYSTEMS: Denies any fever or chills. States she does feel weak. Weight has been stable. Has been afebrile. Reports some shortness of breath. All 12 systems were reviewed and negative for any other pertinent positives or negatives. OBJECTIVE: GENERAL: Izabel Major is an 86-year-old female. She is lying in bed, alert, orientated. VITAL SIGNS: TPR 97.3, 60, 20. Blood pressure 173/67. O2 saturations by pulse oximetry 92% on 2 L of O2. HEENT: Negative. NECK: Supple. HEART: Regular rate and rhythm. LUNGS: Clear. ABDOMEN: Soft, nontender. EXTREMITIES: Without peripheral edema. NEUROLOGIC: Intact. ASSESSMENT: 1. 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 2. Pulmonary emphysema. 3. Colonic diverticulosis. 4. Hematemesis, gastrointestinal bleed, without active bleeding. 5. Atrial fibrillation, with anticoagulation therapy. 6. Irritable bowel syndrome, chronic. 7. Essential hypertension. 8. Chronic obsessive-compulsive disorder. PLAN: Schedule and have consent signed for bronchoscopy with possible biopsies, upper and lower endoscopy with possible biopsies and possible polypectomy. Case to follow today, 02/20/2017, IV sedation, Dr. Josiah Way, surgeon. Remain n.p.o. We will evaluate p.r.n. or in the a.m. Destiney Zavala PA-C /[id number]
[2017-02-20] MEDS ORDERED: Midazolam 1 MG/ML 2 ML SDV ONE ×2 (09:57→12:25)
[2017-02-20] MEDS ORDERED: fentaNYL 100 MCG/2 ML SDV ONE (09:57)
[2017-02-20] MEDS ORDERED: Propofol 200 MG/20 ML SDV ONE (09:57)
[2017-02-20] MEDS ORDERED: Lidocaine 4% Top Soln LTA 4 ML SYRINGE ONE (09:58)
[2017-02-20] MEDS: Amiodarone 200 MG Tab PO SCH (10:02)
[2017-02-20] MEDS: Metoprolol Tartrate 50 MG Tab PO SCH (10:02)
[2017-02-20] MEDS: Lisinopril 20 MG Tab PO SCH (10:03)
[2017-02-20] MEDS ORDERED: Lidocaine 2% Viscous Solution 15 ML Cup ONE (11:03)
[2017-02-20] MEDS ORDERED: Lidocaine 4% Top Soln 50 ML Bottle ONE (11:04)
[2017-02-20] MEDS ORDERED: Glycopyrrolate 0.2 MG/ML 2 ML SDV IVPUSH ONE (12:15)
[2017-02-20] MEDS ORDERED: Atropine 0.1 MG/ML 10 ML Syringe IVPUSH ONE (12:30)
[2017-02-20] MEDS ORDERED: EPINEPHrine 1:10,000 1 MG/10 ML Syringe IV ONE ×2 (13:00→13:10)
[2017-02-20] MEDS ORDERED: LORazepam 2 MG/ML SDV IV ONE (13:09)
[2017-02-20] MEDS ORDERED: Norepinephrine 4 MG in Dextrose 5% in Water 246 ML IV SCH ×2 (13:15)
[2017-02-20 13:20] VITALS: BP 130/59
--- NOTE | 2017-02-20 13:58 | PCM.DCSUM1 ---
Discharge Summary - Hospital Course Brief History: Ms. Major was an 86-year-old woman who was admitted through the emergency department with probable upper GI bleed and a 24-hour history of melenic stools and hematemesis. - Discharge Data Discharge Date: 02/20/17 Discharge Disposition: 20 Preliminary Cause of *Q: Other_Special Instruction (Probable intracerebral hemorrhage, metastatic lung cancer) Condition: - Discharge Diagnosis/Problem(s) (1) Metastatic lung cancer (metastasis from lung to other site) SNOMED Code(s): 414667320 ICD Code: C34.90 - MALIGNANT NEOPLASM OF UNSP PART OF UNSP BRONCHUS OR LUNG Status: Acute (2) Intracerebral hemorrhage SNOMED Code(s): 697797640 ICD Code: I61.9 - NONTRAUMATIC INTRACEREBRAL HEMORRHAGE, UNSPECIFIED Status : Acute (3) Gastrointestinal hemorrhage SNOMED Code(s): 79277867 ICD Code: K92.2 - GASTROINTESTINAL HEMORRHAGE, UNSPECIFIED Status: Acute Priority: High Qualifiers: GI bleed type/associated pathology: gastrointestinal hemorrhage with hematemesis Qualified Code(s): K92.0 - Hematemesis (4) Atrial fibrillation SNOMED Code(s): 35925782 ICD Code: I48.91 - UNSPECIFIED ATRIAL FIBRILLATION Status: Chronic Priority: Medium Qualifiers: Atrial fibrillation type: chronic Qualified Code(s): I48.2 - Chronic atrial fibrillation - Patient Summary/Data Consults: Consultations 02/19/17 00:34 Consult to Physician [CONS] Routine Consulting Provider: Hi Foy Courtesy Call Completed to Consulting Physician: Yes Reason for Consult: surgery consult Person Notified: MD Danii Date Notified: 02/18/17 Time Notified: 23:30 Special Instructions: will have EGD, Colonscopy and Bronchoscopy on 2017 Consult to Spiritual Care [CONS] Routine Spiritual Care Reason for Consult: New Diagnosis Special Instructions: new diagnosis lung cancer OT Evaluation and Treatment [CONS] Routine Please Evaluate and Treat. OT Reason for Consult: Discharge Planning This query below is only for informational purposes and is not editable. 02/19/17 16:12 Consult to Physician [CONS] Routine Consulting Provider: Josiah Way Courtesy Call Completed to Consulting Physician: Yes: per BDB Reason for Consult: EGD/Colonoscopy/Bronchoscopy Hospital Course: Ms. Major was an 86-year-old woman who was admitted through the emergency department with a 24-hour history of bloody stools and hematemesis. On initial evaluation in the emergency department hemoglobin was found to be in the mid 12 range. She was admitted to the hospital and given IV fluids for hydration. After IV fluids hemoglobin did drop to the low 11 range but remained there on serial hemoglobin levels through the rest of the hospital stay. CT scan had been obtained in the emergency department and showed evidence of a pulmonary mass consistent with malignancy. She was scheduled for EGD, colonoscopy, and bronchoscopy on the morning after admission. She had not had good results from a bowel prep so the procedures were deferred one additional day. She was otherwise fairly stable through the hospital stay other than ongoing bradycardia which was felt to be secondary to medication effect from her beta phil. On the morning of her she was taken to the operating room for EGD and bronchoscopy, colonoscopy was not performed as she was continuing to experience significant stool output despite previous bowel preps. Procedure went well and she had no significant compromise during the anesthesia. Shortly after she arrived in the PAR was noticed to have a short seizure involving the right side of her body lasting approximately 15-20 seconds. This was followed shortly by a second seizure again lasting 15-20 seconds. Heart rate during the procedures had been in the 40s and remained in that range in the PAR. She was found to have significant hypotension with systolic pressures in the 70s and 80s. She received IV fluid boluses as well as 2 doses of atropine without significant improvement. Despite IV fluid infusion she continued to experience hypotension and was given 1 amp of epinephrine when heart rate dropped into the 30s and blood pressure systolic to the 50s. Transiently this improved but shortly thereafter she began to experience further generalized tonic-clonic seizures with progressive slowing of her heart rate and severe respiratory compromise. During this period in the [facility] anesthesia was present and provided airway support and monitoring. 2 doses of lorazepam 1 mg each were given for management of her seizures. Despite interventions she proceeded to respiratory arrest with agonal heart rate and no blood pressure. Was felt likely given the seizure activity that she'd experienced a catastrophic neurologic event, likely intracerebral hemorrhage. There was also felt to be possible that she had brain metastases related to her pulmonary mass. She had previously declared DNR/DNI status and did not want further aggressive interventions so none were performed at this time per her previously expressed wishes. During the period of this episode I did discuss her condition with her medical power of estate planning attorney her niece Rachel who agreed with the decision not to pursue further aggressive interventions. - Discharge Plan Home Medications: Home Meds Amiodarone [Cordarone] 200 mg PO DAILY 11/24/13 [History] Aspirin [[place] Aspirin] 81 mg PO DAILY 11/24/13 [History] Furosemide [Lasix] 20 mg PO DAILY 11/24/13 [History] Multivitamin [Multivitamins] 1 tab PO DAILY 11/24/13 [History] Acetaminophen/Diphenhydramine [Tylenol Pm Ex-Strength Caplet] 1 tab PO BEDTIME 08/15/14 [History] Albuterol [Ventolin HFA] 2 puff IH Q4H PRN 09/24/14 [History] Lisinopril 20 mg PO DAILY 10/09/14 [History] Warfarin [Coumadin] 2 mg PO DAILY #30 tablet 10/14/14 [Rx] Metoprolol Tartrate [Lopressor] 50 mg PO BID 01/11/15 [History] Acetaminophen [Pain Reliever] 1 tab PO Q6H PRN 02/18/17 [History] Calcium Carbonate/Vitamin D3 [Calcium 600 + Vit D 200] 1 tab PO DAILY 02/18/17 [ History] Tolterodine Tartrate [Tolterodine Tartrate ER] 1 cap PO DAILY 02/18/17 [History] hydrOXYzine HCl [hydrOXYzine] 50 mg PO Q6H PRN 02/18/17 [History] Referrals: Bird Turcios MD [Primary Care Provider] - - Patient Data Vitals - Most Recent: Last Vital Signs Temp 97.5 F 02/20/17 13:11 Pulse 31 L 02/20/17 13:15 Resp 14 02/20/17 13:15 BP 130/59 L 02/20/17 13:15 Pulse Ox 83 L 02/20/17 13:15 Weight - Most Recent: 130 lb I&O - Last 24 hours: Intake & Output 02/19/17 02/20/17 02/20/17 22:59 06:59 14:59 Intake Total 1380 2373 Output Total 400 525 250 Balance 980 1848 -250 Lab Results - Last 24 hrs: Laboratory Results - last 24 hr 02/19/17 02/19/17 02/20/17 Range/Units 17:05 23:00 05:00 WBC 13.3 H (4.5-11.0) K/uL RBC 3.78 (3.30-5.50) M/uL Hgb 11.1 L 11.5 L 11.2 L (12.0-15.0) g/dL Hct 35.2 L (36.0-48.0) % MCV 93 (80-98) fL MCH 30 (27-31) pg MCHC 32 (32-36) % Plt Count 286 (150-400) K/uL Neut % (Auto) 78 H (36-66) % Lymph % (Auto) 11 L (24-44) % [place] % (Auto) 8 H (2-6) % Eos % (Auto) 2 (2-4) % Baso % (Auto) 0 (0-1) % PT (9.5-12.0) sec INR (0.80-1.20) Puncture Site ABG pH (7.350-7.450) ABG pCO2 (35.0-42.0) mmHg ABG pO2 (75.0-100.0) mmHg ABG HCO3 (22.0-26.0) mmol/L ABG Total CO2 (21.0-25.0) mmol/L ABG O2 Saturation (95.0-98.0) % ABG O2 Content (15.0-23.0) %vol ABG Base Excess mm/L ABG Hemoglobin (12.0-16.0) g/dL ABG Oxyhemoglobin % ABG Carboxyhemoglobin (0.0-1.6) % ABG Methemoglobin % Don Test O2 Delivery Device Oxygen Flow Rate L Sodium (140-148) mmol/L Potassium (3.6-5.2) mmol/L Chloride (100-108) mmol/L Carbon Dioxide (21-32) mmol/L Anion Gap (5.0-14.0) mmol/L BUN (7-18) mg/dL Creatinine (0.6-1.0) mg/dL Est Cr Clr Drug Dosing mL/min Estimated GFR (MDRD) (>60) Glucose (74-106) mg/dL Lactic Acid (0.4-2.0) mmol/L Calcium (8.5-10.1) mg/dL Total Bilirubin (0.2-1.0) mg/dL AST (15-37) U/L ALT (12-78) U/L Alkaline Phosphatase (46-116) U/L Troponin I (0.000-0.056) ng/mL Total Protein (6.4-8.2) g/dL Albumin (3.4-5.0) g/dL Globulin (2.3-3.5) g/dL Albumin/Globulin Ratio (1.2-2.2) 02/20/17 02/20/17 02/20/17 Range/Units 05:00 05:00 12:40 WBC 11.6 H (4.5-11.0) K/uL RBC 3.35 (3.30-5.50) M/uL Hgb 9.9 L (12.0-15.0) g/dL Hct 31.8 L (36.0-48.0) % MCV 95 (80-98) fL MCH 30 (27-31) pg MCHC 31 L (32-36) % Plt Count 249 (150-400) K/uL Neut % (Auto) 75 H (36-66) % Lymph % (Auto) 13 L (24-44) % [place] % (Auto) 10 H (2-6) % Eos % (Auto) 3 (2-4) % Baso % (Auto) 0 (0-1) % PT 12.6 H (9.5-12.0) sec INR 1.17 (0.80-1.20) Puncture Site ABG pH (7.350-7.450) ABG pCO2 (35.0-42.0) mmHg ABG pO2 (75.0-100.0) mmHg ABG HCO3 (22.0-26.0) mmol/L ABG Total CO2 (21.0-25.0) mmol/L ABG O2 Saturation (95.0-98.0) % ABG O2 Content (15.0-23.0) %vol ABG Base Excess mm/L ABG Hemoglobin (12.0-16.0) g/dL ABG Oxyhemoglobin % ABG Carboxyhemoglobin (0.0-1.6) % ABG Methemoglobin % Don Test O2 Delivery Device Oxygen Flow Rate L Sodium 141 (140-148) mmol/L Potassium 4.3 (3.6-5.2) mmol/L Chloride 107 (100-108) mmol/L Carbon Dioxide 26 (21-32) mmol/L Anion Gap 8.3 (5.0-14.0) mmol/L BUN 8 (7-18) mg/dL Creatinine 0.8 (0.6-1.0) mg/dL Est Cr Clr Drug Dosing 46.99 mL/min Estimated GFR (MDRD) > 60 (>60) Glucose 112 H (74-106) mg/dL Lactic Acid (0.4-2.0) mmol/L Calcium 8.1 L (8.5-10.1) mg/dL Total Bilirubin (0.2-1.0) mg/dL AST (15-37) U/L ALT (12-78) U/L Alkaline Phosphatase (46-116) U/L Troponin I (0.000-0.056) ng/mL Total Protein (6.4-8.2) g/dL Albumin (3.4-5.0) g/dL Globulin (2.3-3.5) g/dL Albumin/Globulin Ratio (1.2-2.2) 02/20/17 02/20/17 02/20/17 Range/Units 12:40 12:40 12:40 WBC (4.5-11.0) K/uL RBC (3.30-5.50) M/uL Hgb (12.0-15.0) g/dL Hct (36.0-48.0) % MCV (80-98) fL MCH (27-31) pg MCHC (32-36) % Plt Count (150-400) K/uL Neut % (Auto) (36-66) % Lymph % (Auto) (24-44) % [place] % (Auto) (2-6) % Eos % (Auto) (2-4) % Baso % (Auto) (0-1) % PT (9.5-12.0) sec INR (0.80-1.20) Puncture Site Lt radial ABG pH 7.138 L* (7.350-7.450) ABG pCO2 72.7 H* (35.0-42.0) mmHg ABG pO2 104.0 H (75.0-100.0) mmHg ABG HCO3 23.6 (22.0-26.0) mmol/L ABG Total CO2 23.5 (21.0-25.0) mmol/L ABG O2 Saturation 96.3 (95.0-98.0) % ABG O2 Content 12.8 L (15.0-23.0) %vol ABG Base Excess -5.8 mm/L ABG Hemoglobin 9.6 L (12.0-16.0) g/dL ABG Oxyhemoglobin 94.2 % ABG Carboxyhemoglobin 1.3 (0.0-1.6) % ABG Methemoglobin 0.9 % Don Test Passed O2 Delivery Device Nasal cannula Oxygen Flow Rate 12 L Sodium 143 (140-148) mmol/L Potassium 4.1 (3.6-5.2) mmol/L Chloride 110 H (100-108) mmol/L Carbon Dioxide 26 (21-32) mmol/L Anion Gap 11.1 (5.0-14.0) mmol/L BUN 8 (7-18) mg/dL Creatinine 0.8 (0.6-1.0) mg/dL Est Cr Clr Drug Dosing 46.99 mL/min Estimated GFR (MDRD) > 60 (>60) Glucose 104 (74-106) mg/dL Lactic Acid 0.4 (0.4-2.0) mmol/L Calcium 7.6 L (8.5-10.1) mg/dL Total Bilirubin 1.7 H D (0.2-1.0) mg/dL AST 299 H D (15-37) U/L ALT 294 H (12-78) U/L Alkaline Phosphatase 160 H (46-116) U/L Troponin I 0.030 (0.000-0.056) ng/mL Total Protein 5.0 L (6.4-8.2) g/dL Albumin 2.2 L (3.4-5.0) g/dL Globulin 2.8 (2.3-3.5) g/dL Albumin/Globulin Ratio 0.8 L (1.2-2.2) YANNI Results - Last 24 hrs: Microbiology 02/20/17 11:44 SOM Preparation - Final Other 02/20/17 11:44 SOM Preparation - Final Other 02/20/17 11:44 Gram Stain - Final Tracheal Aspirate 02/20/17 11:44 Gram Stain - Final Bronchial Alveolar Lavage Med Orders - Current: Current Medications Acetaminophen (Tylenol) 650 mg PO Q4H PRN PRN Reason: Pain (Mild 1-3)/fever Last Admin: 02/19/17 13:34 Dose: 650 mg Albuterol (Proventil Neb Soln) 2.5 mg NEB Q4H PRN PRN Reason: Shortness Of Breath/wheezing Albuterol/Ipratropium (Duoneb 3.0-0.5 Mg/3 Ml) 3 ml NEB QID PRN PRN Reason: Shortness Of Breath/wheezing Amiodarone HCl (Cordarone) 200 mg PO DAILY [facility] Last Admin: 02/20/17 10:02 Dose: 200 mg Amlodipine Besylate (Norvasc) 5 mg PO DAILY [facility] Last Admin: 02/20/17 10:04 Dose: 5 mg Diphenhydramine HCl (Benadryl) 25 mg PO BEDTIME PRN PRN Reason: Insomnia Furosemide (Lasix) 20 mg PO DAILY [facility] Last Admin: 02/19/17 09:43 Dose: 20 mg Hydroxyzine HCl (Atarax) 50 mg PO Q6H PRN PRN Reason: Anxiety Sodium Chloride (Normal Saline) 1,000 mls @ 75 mls/hr IV ASDIRECTED [facility] Last Admin: 02/20/17 05:00 Dose: 75 mls/hr Lisinopril (Prinivil) 20 mg PO DAILY [facility] Last Admin: 02/20/17 10:03 Dose: 20 mg Lorazepam (Ativan) 1 mg IV Q6H PRN PRN Reason: Nausea/Vomiting Last Admin: 02/20/17 12:55 Dose: 1 mg Metoprolol Tartrate (Lopressor) 100 mg PO BID [facility] Last Admin: 02/20/17 10:02 Dose: 100 mg Morphine Sulfate (Morphine) 2 mg IVPUSH Q2H PRN PRN Reason: Pain (severe 7-10) Ondansetron HCl (Zofran Odt) 4 mg PO Q6H PRN PRN Reason: Nausea able to take PO Ondansetron HCl (Zofran) 4 mg IV Q4H PRN PRN Reason: Nausea/Vomiting Oxycodone HCl (Oxycodone) 5 mg PO Q4H PRN PRN Reason: Pain (moderate 4-6) Last Admin: 02/20/17 05:07 Dose: 5 mg Pantoprazole Sodium (Protonix Iv) 40 mg IV Q12H [facility] Last Admin: 02/20/17 01:51 Dose: 40 mg Tolterodine Tartrate (Detrol) 1 mg PO BID [facility] Last Admin: 02/19/17 21:55 Dose: 1 mg Zolpidem Tartrate (Ambien) 5 mg PO BEDTIME PRN PRN Reason: Sleep Discontinued Medications Atropine Sulfate (Atropine 0.1 Mg/Ml) 0.5 mg IVPUSH ONETIME ONE Stop: 02/20/17 12:31 Last Admin: 02/20/17 12:39 Dose: 0.5 mg Bisacodyl (Dulcolax) 10 mg PO ONETIME ONE Stop: 02/19/17 00:35 Last Admin: 02/19/17 01:28 Dose: 10 mg Bisacodyl (Dulcolax) 10 mg PO ONETIME ONE Stop: 02/19/17 18:01 Last Admin: 02/19/17 17:36 Dose: 10 mg Bisacodyl (Dulcolax) 10 mg PO ONETIME ONE Stop: 02/19/17 21:01 Last Admin: 02/19/17 22:02 Dose: 10 mg Epinephrine HCl (Epinephrine 1:10,000) 0.5 mg IV ONETIME ONE Stop: 02/20/17 13:11 Last Admin: 02/20/17 13:10 Dose: 0.5 mg Epinephrine HCl (Epinephrine 1:10,000) 1 mg IV ONETIME ONE Stop: 02/20/17 13:01 Last Admin: 02/20/17 13:00 Dose: 1 mg Fentanyl (Sublimaze) Confirm Administered Dose 100 mcg .ROUTE .STK-MED ONE Stop: 02/20/17 09:58 Glycopyrrolate (Glycopyrrolate) 0.2 mg IVPUSH ONETIME ONE Stop: 02/20/17 12:16 Last Admin: 02/20/17 12:18 Dose: 0.2 mg Hydromorphone HCl (Dilaudid) 0.5 mg IVPUSH ONETIME ONE Stop: 02/18/17 21:19 Last Admin: 02/18/17 22:02 Dose: 0.5 mg Sodium Chloride (Normal Saline) 1,000 mls @ 500 mls/hr IV ASDIRECTED [facility] Last Admin: 02/18/17 19:41 Dose: 500 mls/hr Sodium Chloride (Normal Saline) 80 mls @ 3 mls/sec IV ONETIME ONE Stop: 02/18/17 21:11 Last Admin: 02/18/17 21:32 Dose: 3 mls/sec Pantoprazole Sodium 80 mg/ (Sodium Chloride) 100 mls @ 200 mls/hr IV .BOLUS ONE Stop: 02/19/17 01:03 Last Admin: 02/19/17 02:05 Dose: 200 mls/hr Phytonadione 10 mg/ Sodium (Chloride) 51 mls @ 100 mls/hr IV NOW ONE Stop: 02/19/17 01:04 Last Admin: 02/19/17 01:30 Dose: 100 mls/hr Sodium Chloride (Normal Saline) 1,000 mls [facility] 125 [facility] Admin: 02/19/17 09:05 Dose: 125 mls/hr Phytonadione 5 mg/ Sodium (Chloride) 50.5 mls @ 100 mls/hr IV NOW ONE Stop: 02/19/17 14:00 Last Admin: 02/19/17 14:13 Dose: 100 mls/hr Iopamidol (Isovue-300 (61%)) 100 ml IV . DIRECTED PRN PRN Reason: RADIOLOGY EXAM Last Admin: 02/18/17 21:32 Dose: 100 ml Lidocaine (Lta 360 Kit Top Soln) Confirm Administered Dose 4 ml .ROUTE .STK-MED ONE Stop: 02/20/17 09:59 Last Admin: 02/20/17 11:25 Dose: 4 ml Lidocaine HCl (Xylocaine 2% Viscous) Confirm Administered Dose 15 ml .ROUTE .STK -MED ONE Stop: 02/20/17 11:04 Last Admin: 02/20/17 11:25 Dose: 15 ml Lidocaine HCl (Xylocaine 4% Top Soln) Confirm Administered Dose 50 ml .ROUTE .STK-MED ONE Stop: 02/20/17 11:05 Lorazepam (Ativan) 1 mg IV ONETIME ONE Stop: 02/20/17 13:10 Last Admin: 02/20/17 13:09 Dose: 1 mg Midazolam HCl (Versed 1 Mg/Ml) Confirm Administered Dose 2 mg .ROUTE .STK-MED ONE Stop: 02/20/17 09:58 Midazolam HCl (Versed 1 Mg/Ml) Confirm Administered Dose 2 mg .ROUTE .STK-MED ONE Stop: 02/20/17 12:26 Ondansetron HCl (Zofran) 4 mg IVPUSH ONETIME ONE Stop: 02/18/17 22:46 Last Admin: 02/18/17 22:49 Dose: 4 mg Pantoprazole Sodium (Protonix Iv) 40 mg IV Q12H [facility] Last Admin: 02/19/17 02:09 Dose: Not Given Polyethylene Glycol (Miralax) 238 gm PO ONETIME ONE Stop: 02/19/17 00:35 Last Admin: 02/19/17 01:30 Dose: 238 gm Polyethylene Glycol (Miralax) 238 gm PO ONETIME ONE Stop: 02/19/17 18:01 Last Admin: 02/19/17 17:37 Dose: 238 gm Propofol (Diprivan 20 Ml) Confirm Administered Dose 200 mg .ROUTE .STK-MED ONE Stop: 02/20/17 09:58 Sodium Biphosphate/Sodium Phosphate (Fleet Enema) 133 ml RECTAL ONETIME ONE Stop: 02/19/17 08:46 Last Admin: 02/19/17 08:51 Dose: 133 ml Sodium Biphosphate/Sodium Phosphate (Fleet Enema) 133 ml RECTAL ONETIME ONE Stop: 02/19/17 09:20 Last Admin: 02/19/17 09:44 Dose: 133 ml Sodium Chloride (Saline Flush) 10 ml FLUSH ONETIME PRN PRN Reason: PER RADIOLOGY PROTOCOL Last Admin: 02/18/17 21:32 Dose: 10 ml *Q Meaningful Use (DIS) - VTE *Q VTE Criteria *Q: - Stroke *Q Stroke Criteria *Q: - AMI *Q AMI Criteria *Q:
--- NOTE | 2017-02-24 16:40 | OR ---
DATE OF PROCEDURE: 02/20/2017 PREOPERATIVE DIAGNOSES: 1. Recent hematemesis. 2. Mass involving superior segment of right lower lobe of lung. POSTOPERATIVE DIAGNOSES: 1. Erosive gastritis with no active bleeding. 2. Inadequate colon prep. 3. Mass involving superior segment of right lower lobe with enlarged subcarinal lymph node. PROCEDURE: 1. Esophagogastroduodenoscopy with biopsies of antrum for CLOtest. 2. Colonoscopy abandoned due to poor prep. 3. Flexible bronchoscopy with tracheobronchial washings and:. a. Brushings to superior segment of right lower lobe (76980). b. Bronchoalveolar lavage to superior segment of the right lower lobe (45490). c. Transbronchial needle aspiration biopsy of the mass involving the superior segment of right lower lobe ([id number]). d. Transbronchial needle aspiration of subcarinal lymph node ([id number]). ANESTHESIA: Topical plus IV sedation. INDICATIONS FOR PROCEDURE: This is an 86-year-old presenting with hematemesis. Her ProTime is quite elevated and this has now been corrected. As she has not had any further GI bleeding since admission, the plan is to proceed with upper and lower endoscopy for diagnostic purposes with biopsies and/or polypectomy as indicated. The patient also was noted to have a mass involving the superior segment of the right lower lobe. 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 There were some mildly enlarged lymph nodes in the mediastinum, the most easily targeted would be a subcarinal lymph node. Plan is to proceed additionally with flexible bronchoscopy with brushings, biopsies, and bronchoalveolar lavage as indicated. Potential risks of the procedures per se including bleeding, infection, aspiration of gastric contents as well as possibility of cardiopulmonary, septic, or hemorrhagic complications leading to were discussed, and the patient wishes to proceed. PROCEDURE IN DETAIL: The patient was taken to the operating room, and placed initially in a left lateral decubitus position. IV sedation was administered, after which the upper GI endoscope was passed orally through the length of esophagus into the stomach with retroflexion view of the fundus, and thereafter through the pyloric channel and into the proximal duodenum. Visualized hypopharynx, larynx, upper esophageal sphincter, and esophageal body were unremarkable. Within the stomach, there was a small amount of retained bile. There were some erosions within a generalized field of gastritis in the antrum. These were covered with some fibrinous exudate. No active bleeding was seen, but these certainly would be candidates for some recent upper GI bleeding. The pyloric channel and duodenum in the junction of third and fourth portions were unremarkable. At that point, biopsies were obtained from the antrum and sent for CLOtest for H. pylori and the upper GI endoscope was removed and that phase of the procedure concluded. Examination of the rectal area at this point showed a large amount of formed and semi-liquid stool present, a colonoscopy was impossible at this point. At that point, the patient was placed in a supine position, sitting roughly 30 degrees up to minimize chance of aspiration of esophageal contents. A translaryngeal injection of lidocaine per Anesthesia was then placed. The bronchoscope was then passed through the right side of nose and the hypopharynx and the visualized portion of the nasopharynx were unremarkable. The cord motion was symmetrical and as one passed into the trachea, there was no significant splaying of the tracheal course. The patient had in general just a few areas of otherwise clear-appearing secretions. In general, examination was accomplished, no abnormalities were noted. In the left tracheobronchial tree on the right side, the superior segmental bronchus as expected, was somewhat narrowed. There was no obvious mucosal tumor visualized, however, the remainder of the right bronchial tree was unremarkable. At this point, brushings were obtained x2, the superior segmental bronchus, these were sent in Saccomanno solution. Following this, a bronchoalveolar lavage was accomplished injecting 200 mL of saline into the superior segmental bronchus in the right lower lobe. After 200 mL of saline were injected, the fluid was then evacuated, and sent for microbiologic as well as cytologic workup. At this point, a transbronchial aspiration biopsy needle was placed, downward into the superior segmental bronchus. This was directed in the more posterior of the subsegmental bronchi in the direction of the tumor based on preoperative CT scan. The needle was then deployed and suction obtained while the biopsy was reobtained with motion of the needle in and out of the area of concern. The return was somewhat bloody and at that point, the needle was retracted, and the specimen submitted into Saccomanno solution. The attention was then taken to the subcarinal lymph node, this was located slightly toward the posterior aspect of the karthik. At 2 sites, the transbronchial aspiration needle was deployed and again the return was somewhat bloody and the specimen was sent in Saccomanno solution. At that point, no bleeding or other problems were noted. The bronchoscope was withdrawn and at that point, the patient was taken to the recovery room in satisfactory condition. Josiah Way MD /[id number]
== END 2017-02-20 14:25 | disposition expired | DRG 987 ==
LOC: JP.ED 18:24 → JP.MS 23:43 → UNDOADMIN 23:43 → JP.ICU 02-20 13:04 → JP.MS 02-20 13:17
PROVIDERS: ADMIT Internal Medicine; ATTEND Hospitalist
PROC: 0DB68ZX Excision of Stomach, Via Natural or Artificial Opening Endoscopic, Diagnostic (ICD-10-PCS; principal; 2017-02-20)
PROC: 0B9F8ZX Drainage of Right Lower Lung Lobe, Via Natural or Artificial Opening Endoscopic, Diagnostic (ICD-10-PCS; 2017-02-20)
PROC: 0BDF8ZX Extraction of Right Lower Lung Lobe, Via Natural or Artificial Opening Endoscopic, Diagnostic (ICD-10-PCS; 2017-02-20)
PROC: 0BDF8ZX Extraction of Right Lower Lung Lobe, Via Natural or Artificial Opening Endoscopic, Diagnostic (ICD-10-PCS; 2017-02-20)
PROC: 07D78ZX Extraction of Thorax Lymphatic, Via Natural or Artificial Opening Endoscopic, Diagnostic (ICD-10-PCS; 2017-02-20)
PROC: 0DJD8ZZ Inspection of Lower Intestinal Tract, Via Natural or Artificial Opening Endoscopic (ICD-10-PCS; 2017-02-20)
DX: K92.2 Gastrointestinal hemorrhage, unspecified (principal); I63.9 Cerebral infarction, unspecified; C34.90 Malignant neoplasm of unspecified part of unspecified bronchus or lung; R91.8 Other nonspecific abnormal finding of lung field; C79.31 Secondary malignant neoplasm of brain; K92.1 Melena; K92.0 Hematemesis; I10 Essential (primary) hypertension; I48.2 Chronic atrial fibrillation; R10.30 Lower abdominal pain, unspecified; Z87.891 Personal history of nicotine dependence; Z66 Do not resuscitate; I95.9 Hypotension, unspecified; R00.1 Bradycardia, unspecified; T50.905A Adverse effect of unspecified drugs, medicaments and biological substances, initial encounter; Y92.239 Unspecified place in hospital as the place of occurrence of the external cause; M19.90 Unspecified osteoarthritis, unspecified site; M54.9 Dorsalgia, unspecified; G89.29 Other chronic pain; H54.7 Unspecified visual loss; Z79.82 Long term (current) use of aspirin; Z79.01 Long term (current) use of anticoagulants; Z88.0 Allergy status to penicillin; Z53.09 Procedure and treatment not carried out because of other contraindication; I69.398 Other sequelae of cerebral infarction; R56.9 Unspecified convulsions
CPT/HCPCS: 36415; 71260; 74022 ×2; 74177; 80053; 82272; 84443; 85025; 85610; 86140; 96361; 96374; 96375; 99285; J1170; J2405; J7030; J7040; J7050; Q9967; 36600; 80048; 81003; 82803; 83605; 84484; 85018; 86850; 86900; 86901; 86920; 86922; 87015; 87070; 87077; 87081; 87102; 87116; 87186; 87205; 87206; 87220; 88112; 88305; 88341; 88342; 94762; 97165-GO; 99284; A9270-GY; C9113; J0171; J0461; J2060; J2250; J2704; J3010; J3430; J3490